=== PATIENT | female | born 1935 | race Caucasian/White ===

== ENCOUNTER 2019-01-10 11:28 | Inpatient (IN) | payer OTHER, MEDICARE ==
[~2019-01-10] VITALS: Ht 162.6 cm; Wt 49.4 kg
[2019-01-10 11:31] VITALS: BP 128/74
--- NOTE | 2019-01-10 11:54 | NUR ---
PT BIBA BLS TO ER BED 02
--- NOTE | 2019-01-10 12:00 | NUR ---
83Y/F BIB EMS FROM [facility], FOR VAGINAL BLEEDING. PER EMS, PT WAS AT [facility] YESTERDAY FOR UTI AND PT STATES TODAY SHE HAS BLEEDING WITH CLOT EARLIER TODAY. PT IS AAOX4, VSS AT THIS TIME, BED DOWN, LOW LOCKED, BEDRAIL UP X 1, ER MD AWARE AND NOTIFIED OF PT STATUS.
[2019-01-10] MEDS ORDERED: NACL 0.9% 1,000 ML IV ONE (12:50)
--- NOTE | 2019-01-10 13:00 | NUR ---
PT BEING TAKEN TO CT
--- NOTE | 2019-01-10 13:12 | NUR ---
PT IS BACK FROM CT
--- NOTE | 2019-01-10 13:29 | NUR ---
PT NS IN CONNECTED AND RUNNING AT 100ML/HR AT THIS TIME
--- NOTE | 2019-01-10 13:45 | NUR ---
lab at bedside
[2019-01-10 13:57] LABS: BASOPHILS # (AUTO) 0.1 K/uL (0.00-0.22); BASOPHILS % (AUTO) 1.1 % (0.0-2.0); EOSINOPHILS # (AUTO) 0.6 K/uL (0-0.4); HEMATOCRIT 29.8 % (36-48); HEMOGLOBIN 9.9 g/dL (12.0-16.0); LYMPHOCYTES # (AUTO) 1.5 K/uL (2.5-16.5); MEAN CORPUSCULAR HEMOGLOBIN 31 pg (27-31); MEAN CORPUSCULAR HGB CONC 33 g/dL (33-37); MEAN CORPUSCULAR VOLUME 94.9 fL (80-94); MONOCYTES # (AUTO) 0.5 K/uL (0.8-1.0); MONOCYTES % (AUTO) 8.1 % (1.7-9.3); NEUTROPHILS % (AUTO) 59.8 % (42.2-75.2); PLATELET COUNT (AUTO) 209 K/uL (140-450); RED BLOOD CELL COUNT(AUTO) 3.14 MIL/uL (4.20-5.40); RED CELL DISTRIBUTION WIDTH 12.8 % (11.6-13.7); WHITE BLOOD COUNT (AUTO) 6.7 K/uL (4.8-10.8)
[2019-01-10 14:29] LABS: PROTHROMBIN TIME 9.9 secs (10.8-13.4)
--- NOTE | 2019-01-10 14:30 | NUR ---
Patient appears to be resting comfortably in bed. Vital Signs within normal limits. Respirations even and unlabored.
[2019-01-10 14:58] LABS: ANION GAP 7.7 (8-16); CHLORIDE 103 mmol/L (98-107); GLUCOSE 107 mg/dL (74-106); POTASSIUM 3.7 mmol/L (3.5-5.1); SODIUM SERUM 141 mmol/L (136-145); UREA NITROGEN, BLOOD 21 mg/dL (7-18)
[2019-01-10 15:04] LABS: ALBUMIN 2.8 g/dL (3.4-5.0); AMYLASE 82 U/L (25-115); ASPARTATE AMINOTRANSFERASE 14 U/L (15-37); LIPASE 122 U/L (73-393); MAGNESIUM 1.6 mg/dL (1.8-2.4); TOTAL BILIRUBIN 0.4 mg/dL (0.0-1.0)
[2019-01-10 15:22] LABS: ACETONE, SERUM NEGATIVE (NEGATIVE)
[2019-01-10 15:39] LABS: APPEARANCE,URINE HAZY (CLEAR); BILIRUBIN,URINE NEGATIVE (NEGATIVE); BLOOD, URINE 1+ (NEGATIVE); COLOR,URINE YELLOW (YELLOW); LEUKOCYTE ESTERASE ,URINE 2+ (NEGATIVE); NITRITE, URINE NEGATIVE (NEGATIVE); UGLUCOSE NEGATIVE (NEGATIVE)
[2019-01-10 16:11] LABS: RBC,URINE 3-10 (FEW) /HPF (0-5); WBC,URINE 60-80 /HPF (0-5)
--- NOTE | 2019-01-10 16:12 | NUR ---
ULTRASOUND AT BEDSIDE
--- NOTE | 2019-01-10 19:30 | NUR ---
Received report from MARCELLE Shepard. Pt is pending to be discharged home d/t pt's insurance and pt does not meet criteria for admission.
--- NOTE | 2019-01-10 20:21 | NUR ---
Pt lying in bed resting with eyes closed, daughter at bedside, NAD noted. VSS.
--- NOTE | 2019-01-10 21:07 | NUR ---
RESIDENT SPEAKING WITH PT FAMILY
[2019-01-10] MEDS ORDERED: cefTRIAXone 1,000 MG VIAL ONE (21:19)
[2019-01-10] MEDS ORDERED: HYDROcodone/APAP 5/325 MG 1 TAB TAB PO PRN (21:20)
[2019-01-10] MEDS ORDERED: ONDANSETRON 4 MG/2 ML VIAL IM/IVP PRN (21:20)
[2019-01-10] MEDS ORDERED: ACETAMINOPHEN 325 MG TAB PO PRN (21:20)
[2019-01-10] MEDS ORDERED: MORPHINE SULFATE 2 MG/ML SYR IVP PRN (21:20)
[2019-01-10] MEDS ORDERED: DOCUSATE SODIUM 100 MG GELCAP PO PRN (21:20)
[2019-01-10] MEDS ORDERED: SODIUM PHOSPHATE 118 ML ENEM RC PRN (21:55)
[2019-01-10] MEDS ORDERED: ALBUTEROL SULFATE/IPRATROPIU 3 ML SOL IH PRN (21:55)
[2019-01-10] MEDS ORDERED: BISACODYL 10 MG SUPP RC PRN (21:55)
[2019-01-10 21:56] LABS: PHOSPHORUS 3.3 mg/dL (2.5-4.9); THYROID STIMULATING HORMONE 1.97 uIU/mL (0.34-3.74)
--- NOTE | 2019-01-10 22:10 | NUR ---
Patient will be admitted to care of Dr. Mclaughlin. Admited to Med/Surg. Will go to room 119B. Belongings list completed. Report to Corby IBANEZ.
[2019-01-10 22:30] VITALS: BP 99/69
[2019-01-10] MEDS ORDERED: MAGNESIUM OXIDE 400 MG TAB PO SCH (22:30)
--- NOTE | 2019-01-10 22:30 | NUR ---
RECEIVED REPORT FROM [facility] NURSE. PATIENT IS AWAKE, ALERT, RESPIRATION EVEN UNLABORED ON O2 2L VIA NC. LUNG SOUNDS CLEAR. PRIMARILY ANGUILLAN SPEAKING. DAUGHTER AT BEDSIDE. IV PATENT AND INTACT. SKIN IS WARM AND DRY. REDNESS/EXCORIATION TO SACRUM NOTED. MRSA SCREEN COLLECTED. VITAL SIGNS STABLE. ORIENT PATIENT TO STAFF, ROOM, AND CALL LIGHT. PLAN OF CARE WAS DISCUSSED. ALL SAFETY MEASURE IN PLACE. BED IS AT LOW POSITION. BED ALARM ON. CALL LIGHT WITHIN REACH. WILL CONTINUE TO MONITOR.
[2019-01-10] MEDS ORDERED: FAMO-90 PO (22:33)
[2019-01-10] MEDS ORDERED: BISA-213 RC (22:33)
[2019-01-10] MEDS ORDERED: MELO15TA11 PO (22:33)
--- NOTE | 2019-01-10 23:40 | NUR ---
PATIENT WAS AWAKE RESPIRATION EVEN UNLABORED ON O2 2L VIA NC. MEDS WERE GIVEN PER ORDER. VITALS STABLE. NO DISTRESS NOTED. WILL CONTINUE TO MONITOR.
[2019-01-10] MEDS: NACL 0.9% 1,000 ML IV SCH (23:50)
[2019-01-11] VITALS: BP 96/63
--- NOTE | 2019-01-11 | NUR ---
IV INFILTRATED. D/C IV. NO ACTIVE BLEEDING SEEN. CANNULA INTACT. INSERTED A NEW IV LINE. PATIENT TOLERATED WELL. WILL CONTINUE TO MONITOR
--- NOTE | 2019-01-11 02:00 | NUR ---
PATIENT IS SLEEPING COMFORTABLY RESPIRATION EVEN UNLABORED ON O2 2L VIA NC. NO DISTRESS NOTED AT THIS TIME WILL CONTINUE TO MONITOR.
--- NOTE | 2019-01-11 04:00 | NUR ---
PATIENT SLEEPING NO SIGNS OF DISTRESS. WILL CONTINUE TO MONITOR.
--- NOTE | 2019-01-11 06:00 | NUR ---
CHANGED PATIENT AND GAVE PERICARE. MINIMAL VAGINAL BLEEDING NOTED. PATIENT IS STABLE AT THIS TIME. NO DISTRESS NOTED. WILL CONTINUE TO MONITOR
--- NOTE | 2019-01-11 07:29 | NUR ---
ENDORSED PATIENT TO DAY SHIFT NURSE FOR CONTINUITY OF CARE. PATIENT IS STABLE AT THIS TIME.
--- NOTE | 2019-01-11 07:30 | NUR ---
Received report from pm nurse. Pt asleep, FLACC 0, respirations even & nonlabored. Call light within reach.
--- NOTE | 2019-01-11 07:54 | NUR ---
PATIENT HAS BEEN SCREENED AND CATEGORIZED HIGH NUTRITION RISK. PATIENT WILL BE SEEN WITHIN 1-2 DAYS OF ADMISSION. 01/11/19-01/12/[address]
[2019-01-11 08:00] VITALS: BP 107/64
[2019-01-11 08:06] LABS: BASOPHILS # (AUTO) 0.1 K/uL (0.00-0.22); EOSINOPHILS # (AUTO) 0.7 K/uL (0-0.4); EOSINOPHILS % (AUTO) 12.8 % (0.0-4.0); HEMATOCRIT 30.1 % (36-48); HEMOGLOBIN 9.7 g/dL (12.0-16.0); LYMPHOCYTES # (AUTO) 1.5 K/uL (2.5-16.5); LYMPHOCYTES % (AUTO) 26.7 % (20.5-51.1); MEAN CORPUSCULAR HEMOGLOBIN 31 pg (27-31); MEAN CORPUSCULAR HGB CONC 32 g/dL (33-37); MEAN CORPUSCULAR VOLUME 95.4 fL (80-94); MONOCYTES # (AUTO) 0.4 K/uL (0.8-1.0); MONOCYTES % (AUTO) 7.4 % (1.7-9.3); NEUTROPHILS # (AUTO) 2.9 K/uL (1.8-7.7); NEUTROPHILS % (AUTO) 52.1 % (42.2-75.2); PLATELET COUNT (AUTO) 224 K/uL (140-450); RED BLOOD CELL COUNT(AUTO) 3.15 MIL/uL (4.20-5.40); WHITE BLOOD COUNT (AUTO) 5.6 K/uL (4.8-10.8)
--- NOTE | 2019-01-11 08:30 | NUR ---
Spotting noted on underpads. Pt denies any pain, no abdominal distention. Pericare provided. Call light within reach.
[2019-01-11] MEDS: LACTOBACILLUS RHAMNOSUS GG 1 EACH CAP PO SCH (08:55)
[2019-01-11] MEDS: TAMSULOSIN 0.4 MG CAP PO SCH (08:55)
[2019-01-11] MEDS: FAMOTIDINE 20 MG TAB PO SCH (08:56)
[2019-01-11 09:03] LABS: ANION GAP 7.7 (8-16); CHLORIDE 105 mmol/L (98-107); CREATININE 0.8 mg/dL (0.6-1.3); GLUCOSE 82 mg/dL (74-106); POTASSIUM 3.7 mmol/L (3.5-5.1); SODIUM SERUM 141 mmol/L (136-145); UREA NITROGEN, BLOOD 15 mg/dL (7-18)
--- NOTE | 2019-01-11 10:26 | NUR ---
POST PHYSICAL THERAPY PATIENT PRESENTING WITH INCREASED SOB HHN PRN THERAPY GIVEN AT THIS TIME
--- NOTE | 2019-01-11 10:39 | NUR ---
REVIEWED ROOM SATURATION SATURATION WITH DEYSI/MARCELLE
--- NOTE | 2019-01-11 10:40 | NUR ---
Receieved report from PT. Assessed pt, pt lying in bed with HOB elevated to 30deg. No c/o discomfort, no signs of distress. Call light within reach. Right forearm IV intact with ongoing NS @ 60ml/hr. Call light within reach.
[2019-01-11] MEDS ORDERED: MAG SULF 2000 MG/WATER PREMIX 50 ML IV SCH (12:00)
--- NOTE | 2019-01-11 13:27 | NUR ---
01/11/19 RD INITIAL ASSESSMENT COMPLETED PLEASE REFER TO NUTRITION ASSESSMENT UNDER CARE ACTIVITY FOR ESTIMATED NUTRITIONAL NEEDS. RD RECOMMENDATIONS: 1. RECOMMEND SOFT REGULAR DIET 2. RECOMMEND ENSURE BID 3. RECOMMEND FERROUS SULFATE SUPPLEMENTATION 4. ENCOURAGE PO INTAKE 5. RD TO FOLLOW-UP 3-5 DAYS, MODERATE RISK SAMINA BEAUCHAMP, RD
[2019-01-11] MEDS: NACL 0.9% 1,000 ML IV SCH ×2 (13:57→20:05)
--- NOTE | 2019-01-11 14:40 | NUR ---
Warhead Maintenance Specialist Note: Per Christiano from [facility] , patient is on a 7 day bed hold and is one of their fpc patients. He stated patient's health care decision maker is her daughter Katherin Oswald .
[2019-01-11 16:00] VITALS: BP 94/53
[2019-01-11] MEDS: FERROUS SULFATE 325 MG TABEC PO SCH (17:15)
--- NOTE | 2019-01-11 18:00 | NUR ---
Pt resting in bed, no c/o discomfort. No bleeding noted to periarea. No signs of distress. R forearm IV intact with ongoing NS @ 60ml/hr.Call light within reach.
--- NOTE | 2019-01-11 19:20 | NUR ---
Report given to pm nurse Corby. Pt in bed, awake, no signs of distress, FLACC 0. Family at bedside visiting.
--- NOTE | 2019-01-11 19:35 | NUR ---
RECEIVED PATIENT FROM DAY SHIFT NURSE FOR CONTINUITY OF CARE. PATIENT IS AWAKE, ALERT, RESPIRATION EVEN UNLABORED ON ROOM AIR. DENIES PAIN. SKIN IS DRY AND WARM. IV PATENT AND INTACT. FAMILY AT BEDSIDE. PLAN OF CARE WAS DISCUSSED WITH THE PATIENT. ALL SAFETY MEASURE IN PLACE. BED IS AT LOW POSITION. BED ALARM ON. CALL LIGHT WITHIN REACH.
--- NOTE | 2019-01-11 20:15 | NUR ---
PATIENT BP 85/45. INSTRUCTED PATIENT TO DRINK FLUIDS TOLERATED. RAISED THE HEAD OF THE BED. RECHECKED 15MINS LATER BP 86/51. NOTIFIED DR. VELÁZQUEZ WITH THE SITUATION. WILL CONTINUE TO MONITOR.
--- NOTE | 2019-01-11 20:30 | NUR ---
RECHECKED PATIENT BP NOW 84/50. DR. VELÁZQUEZ ORDERED OPEN IV FLUIDS TO INCREASE THE BLOOD VOLUME. RECHECKED BP AFTER ADMINISTRATION OF BOLUS. PATIENT BP 94/47. DR. VELÁZQUEZ IS AWARE. NO NEW ORDERS GIVEN. WILL CONTINUE TO MONITOR.
[2019-01-11] MEDS ORDERED: NACL 0.9% 500 ML IV ONE (20:45)
[2019-01-11] MEDS: Z-GUARD PASTE TP SCH (21:13)
--- NOTE | 2019-01-11 21:30 | NUR ---
CHANGED PATIENT. SPOTTING NOTED ON THE PAD. PATIENT DENIES PAIN. GOOD PERICARE WAS PROVIDED. WILL CONTINUE TO MONITOR
--- NOTE | 2019-01-11 22:45 | NUR ---
PATIENT IS SLEEPING COMFORTABLY RESPIRATION EVEN UNLABORED ON ROOM AIR. NO DISTRESS NOTED. WILL CONTINUE TO MONITOR.
[2019-01-12] VITALS: BP 90/54
--- NOTE | 2019-01-12 | NUR ---
PATIENT VITAL STABLE. NO DISTRESS NOTED. WILL CONTINUE TO MONITOR.
--- NOTE | 2019-01-12 02:59 | NUR ---
CHECKED ON PATIENT. PATIENT SLEEPING COMFORTABLY RESPIRATION EVEN UNLABORED ON ROOM AIR. NO DISTRESS NOTED. WILL CONTINUE TO MONITOR.
--- NOTE | 2019-01-12 05:09 | NUR ---
CHECKED PATIENT VITAL SIGNS BP:107/56 HR: 87 SPO2: 94% ON ROOM AIR RR: 16 TEMP: 97.8. PATIENT STABLE AT THIS TIME. WILL CONTINUE TO MONITOR.
[2019-01-12 06:19] LABS: EOSINOPHILS # (AUTO) 0.7 K/uL (0-0.4); EOSINOPHILS % (AUTO) 13.5 % (0.0-4.0); HEMATOCRIT 27.3 % (36-48); LYMPHOCYTES # (AUTO) 1.4 K/uL (2.5-16.5); LYMPHOCYTES % (AUTO) 29.1 % (20.5-51.1); MEAN CORPUSCULAR HEMOGLOBIN 31 pg (27-31); MEAN CORPUSCULAR HGB CONC 33 g/dL (33-37); MEAN CORPUSCULAR VOLUME 94.5 fL (80-94); MONOCYTES # (AUTO) 0.5 K/uL (0.8-1.0); MONOCYTES % (AUTO) 9.6 % (1.7-9.3); NEUTROPHILS # (AUTO) 2.3 K/uL (1.8-7.7); NEUTROPHILS % (AUTO) 46.8 % (42.2-75.2); PLATELET COUNT (AUTO) 196 K/uL (140-450); RED BLOOD CELL COUNT(AUTO) 2.88 MIL/uL (4.20-5.40); RED CELL DISTRIBUTION WIDTH 12.8 % (11.6-13.7); WHITE BLOOD COUNT (AUTO) 4.8 K/uL (4.8-10.8)
[2019-01-12 06:21] LABS: T4 (THYROXINE) 6.6 ug/dL (4.5-12.0)
[2019-01-12 06:42] LABS: ANION GAP 7.2 (8-16); CARBON DIOXIDE 29.8 mmol/L (21-32); CHLORIDE 110 mmol/L (98-107); CREATININE 0.8 mg/dL (0.6-1.3); GLUCOSE 87 mg/dL (74-106); SODIUM SERUM 143 mmol/L (136-145); UREA NITROGEN, BLOOD 13 mg/dL (7-18)
[2019-01-12 06:48] LABS: MAGNESIUM 2.1 mg/dL (1.8-2.4); PHOSPHORUS 2.5 mg/dL (2.5-4.9)
[2019-01-12] MEDS: NACL 0.9% 1,000 ML IV SCH (06:52)
--- NOTE | 2019-01-12 07:29 | NUR ---
ENDORSED PATIENT TO DAY SHIFT NURSE FOR CONTINUITY OF CARE. PATIENT IS STABLE AT THIS TIME.
--- NOTE | 2019-01-12 07:30 | NUR ---
Received report from pm nurse Lui. Pt asleep in bed, respirations even & nonlabored, FLACC 0. Call light within reach.
[2019-01-12 08:00] VITALS: BP 104/75
[2019-01-12 08:19] LABS: FOLIC ACID 18.6 ng/mL (>3.0)
[2019-01-12] MEDS: FAMOTIDINE 20 MG TAB PO SCH (08:39)
[2019-01-12] MEDS: Z-GUARD PASTE TP SCH ×2 (08:39→20:38)
[2019-01-12] MEDS: LACTOBACILLUS RHAMNOSUS GG 1 EACH CAP PO SCH (08:42)
[2019-01-12] MEDS: TAMSULOSIN 0.4 MG CAP PO SCH (08:42)
[2019-01-12] MEDS: FERROUS SULFATE 325 MG TABEC PO SCH ×2 (08:42→17:58)
[2019-01-12] MEDS: SODIUM FERRIC GLUCONATE 125 MG in NACL 0.9% 100 ML IV SCH (11:22)
--- NOTE | 2019-01-12 11:22 | NUR ---
Bisacodyl administered pr for constipation. Soft brown stool present in rectal vault. No c/o GI discomfort.
--- NOTE | 2019-01-12 13:00 | NUR ---
Bisacodyl reassessment: Pt has 1 large soft brown stool. Pericare provided, underpads changed, pt repositioned. Pt awake, verbal, no c/o discomfort at this time, no signs of distress. Call light within reach.
[2019-01-12 16:00] VITALS: BP 82/44
--- NOTE | 2019-01-12 16:00 | NUR ---
Pt asleep upon entering room, FLACC 0, respirations even & nonlabored. Pt woke up when name is called. Obtained vital signs with noted BP 82/44, P 115. Pt awake, no c/o discomfort, respirations even & nonlabored. Dr. Villarreal notified. Per physician, sit pt upright to perk her up then recheck BP. Pt placed in high fowlers in bed, encouraged to watch TV & engaged in conversation. Will continue to monitor.
[2019-01-12 16:30] VITALS: BP 92/57
--- NOTE | 2019-01-12 16:30 | NUR ---
BP & pulse reassessed. Pt in high fowlers, awake & watching TV. No signs of distress. No c/o discomfort. BP 92/57, P 112. Call light within reach. Addendum: 01/12/19 at 1747 by Chela Degroot RN Amended: Links added.
--- NOTE | 2019-01-12 19:10 | NUR ---
Report given to pm nurse Kisses.
--- NOTE | 2019-01-12 20:00 | NUR ---
PATIENT IS AWAKE, ALERT RESPIRATION EVEN UNLABORED ON ROOM AIR. DENIES PAIN. INITIAL ASSESSMENT DONE. VITALS STABLE. WILL CONTINUE TO MONITOR.
--- NOTE | 2019-01-12 20:30 | NUR ---
MEDS WERE GIVEN PER ORDER. FAMILY AT BEDSIDE. NO DISTRESS NOTED. WILL CONTINUE TO MONITOR.
--- NOTE | 2019-01-12 22:40 | NUR ---
CHANGED PATIENT MINIMAL VAGINAL BLEEDING NOTED. PROVIDED GOOD PERICARE. PATIENT DENIES PAIN. WILL CONTINUE TO MONITOR.
[2019-01-13] VITALS: BP 86/56
--- NOTE | 2019-01-13 | NUR ---
CHECKED PATIENT. VITALS WERE TAKEN. PATIENT SLEEPING COMFORTABLY RESPIRATION EVEN UNLABORED ON ROOM AIR. WILL CONTINUE TO MONITOR.
--- NOTE | 2019-01-13 02:00 | NUR ---
PATIENT SLEEPING COMFORTABLY RESPIRATION EVEN UNLABORED ON ROOM AIR. NO DISTRESS NOTED. WILL CONTINUE TO MONITOR.
--- NOTE | 2019-01-13 04:30 | NUR ---
CHANGED PATIENT MINIMAL VAGINAL BLEEDING NOTED. WILL CONTINUE TO MONITOR.
--- NOTE | 2019-01-13 07:10 | NUR ---
RECEIVED PT REPORT FROM SURVEILLANCE SYSTEMS ANALYST NURSE AT BEDSIDE FOR CONTINUITY OF CARE. PT IS AWAKE, ALERT, RESPIRATION EVEN UNLABORED ON ROOM AIR. DENIES PAIN. IV CATH TO RIGHT FA 22G, PATENT AND INTACT. ALL SAFETY MEASURE IN PLACE. BED IS AT LOWEST POSITION. BED ALARM ON. CALL LIGHT WITHIN REACH.
--- NOTE | 2019-01-13 07:27 | NUR ---
ENDORSED PATIENT TO DAY SHIFT NURSE FOR CONTINUITY OF CARE. PATIENT STABLE AT THIS TIME
[2019-01-13 07:53] LABS: BASOPHILS % (AUTO) 0.7 % (0.0-2.0); EOSINOPHILS # (AUTO) 0.6 K/uL (0-0.4); EOSINOPHILS % (AUTO) 11.9 % (0.0-4.0); HEMATOCRIT 27.7 % (36-48); HEMOGLOBIN 9.1 g/dL (12.0-16.0); LYMPHOCYTES # (AUTO) 1.9 K/uL (2.5-16.5); LYMPHOCYTES % (AUTO) 37.5 % (20.5-51.1); MEAN CORPUSCULAR HEMOGLOBIN 31 pg (27-31); MEAN CORPUSCULAR HGB CONC 33 g/dL (33-37); MEAN CORPUSCULAR VOLUME 94.9 fL (80-94); MONOCYTES # (AUTO) 0.4 K/uL (0.8-1.0); MONOCYTES % (AUTO) 8.6 % (1.7-9.3); NEUTROPHILS # (AUTO) 2.1 K/uL (1.8-7.7); NEUTROPHILS % (AUTO) 41.3 % (42.2-75.2); PLATELET COUNT (AUTO) 188 K/uL (140-450); RED BLOOD CELL COUNT(AUTO) 2.92 MIL/uL (4.20-5.40); WHITE BLOOD COUNT (AUTO) 5.1 K/uL (4.8-10.8)
[2019-01-13 07:54] LABS: ANION GAP 5.1 (8-16); CARBON DIOXIDE 32.8 mmol/L (21-32); CHLORIDE 109 mmol/L (98-107); CREATININE 0.8 mg/dL (0.6-1.3); GLUCOSE 87 mg/dL (74-106); POTASSIUM 3.9 mmol/L (3.5-5.1); SODIUM SERUM 143 mmol/L (136-145); UREA NITROGEN, BLOOD 10 mg/dL (7-18)
[2019-01-13 08:00] VITALS: BP 96/55
--- NOTE | 2019-01-13 08:00 | NUR ---
VITALS TAKEN, PT TOLERATED WELL. MINIMAL VAGINAL BLEEDING NOTED. PERICARE DONE. CHUX CHANGED.
[2019-01-13] MEDS: FERROUS SULFATE 325 MG TABEC PO SCH ×2 (08:07→17:27)
[2019-01-13] MEDS: TAMSULOSIN 0.4 MG CAP PO SCH (08:07)
[2019-01-13] MEDS: LACTOBACILLUS RHAMNOSUS GG 1 EACH CAP PO SCH (08:07)
[2019-01-13] MEDS: FAMOTIDINE 20 MG TAB PO SCH (08:07)
[2019-01-13] MEDS: Z-GUARD PASTE TP SCH (08:11)
--- NOTE | 2019-01-13 10:30 | NUR ---
PT WORKED PHYSICAL THERAPIST. PER THERAPIST, PT IS WEAK AND NEEDS PT TX.
[2019-01-13] MEDS ORDERED: DOCU-299 PO (10:46)
[2019-01-13] MEDS ORDERED: ASCO500T45 PO (10:46)
[2019-01-13] MEDS ORDERED: FERR325E14 PO (10:46)
[2019-01-13] MEDS: SODIUM FERRIC GLUCONATE 125 MG in NACL 0.9% 100 ML IV SCH (12:00)
--- NOTE | 2019-01-13 12:24 | NUR ---
PER [facility] QUIROS [facility] ARRANGED FOR 5:30PM.
--- NOTE | 2019-01-13 15:20 | NUR ---
POC DISCUSSED WITH PT'S DAUGHTER ULISES. ALL QUESTIONS WERE ANSWERED AND FAMILY AGREE WITH POC. PT WILL BE DC BACK TO [facility].
[2019-01-13 16:00] VITALS: BP 96/54
[2019-01-13] MEDS: NACL 0.9% 1,000 ML IV SCH (16:37)
--- NOTE | 2019-01-13 16:45 | NUR ---
REPORT GIVEN TO NURSE ALVARADO AT [facility]. PT GOING TO [facility], F/U WITH DR MELTON
--- NOTE | 2019-01-13 17:00 | NUR ---
Z GUARD APPLIED TO SACRAL AND OPTIFOAM APPLIED TO SACROCOCCYX FOR PREVENTION. PIC TAKEN.
--- NOTE | 2019-01-13 18:41 | NUR ---
DC'D IV CATH, TIP INTACT, PRESSURE APPLIED. PT LEFT WITH [facility].
== END 2019-01-13 18:40 | DRG 532 ==
LOC: MED 11:28 → MTU 21:17
PROVIDERS: ADMIT General Practice; ATTEND General Practice
DX: D25.9 Leiomyoma of uterus, unspecified (principal); N17.0 Acute kidney failure with tubular necrosis; E43 Unspecified severe protein-calorie malnutrition; E86.0 Dehydration; I50.9 Heart failure, unspecified; I11.0 Hypertensive heart disease with heart failure; D64.9 Anemia, unspecified; J84.89 Other specified interstitial pulmonary diseases; N39.0 Urinary tract infection, site not specified; J43.9 Emphysema, unspecified; E83.42 Hypomagnesemia; J45.909 Unspecified asthma, uncomplicated; F41.9 Anxiety disorder, unspecified; K56.41 Fecal impaction; K21.9 Gastro-esophageal reflux disease without esophagitis; D35.01 Benign neoplasm of right adrenal gland; K44.9 Diaphragmatic hernia without obstruction or gangrene; F03.90 Unspecified dementia, unspecified severity, without behavioral disturbance, psychotic disturbance, mood disturbance, and anxiety; Z66 Do not resuscitate; Z74.01 Bed confinement status; Z68.1 Body mass index [BMI] 19.9 or less, adult
CPT/HCPCS: 36415; 71045; 76856; 80048; 80053; 81001; 82009; 82140; 82150; 82272; 82607; 82728; 82746; 82948; 83036; 83540; 83605; 83690; 83735; 83880; 84100; 84436; 84443; 84484; 84550; 85025; 85045; 85610; 86886; 86900; 86901; 87081; 94640; 96365; 96368; 97110; 97116; 97530; 99285; J0696; J2916; J3475; J7030; J7060; J7620; Q0092